=== PATIENT | male | born 1980 ===

== ENCOUNTER 2018-06-30 17:25 | Emergency (ER) | payer SELFPAY ==
[2018-06-30] MEDS ORDERED: KETOROLAC TROMETHAMINE 30 MG/ML SOL IM ONE (18:10)
[2018-06-30] MEDS ORDERED: SOLUMEDROL 125 MG/2 ML 125 MG/2 ML PDS IM ONE (18:10)
[2018-06-30] MEDS ORDERED: KETOROLAC TROMETHAMINE 30 MG/ML SOL ONE (18:12)
[2018-06-30] MEDS ORDERED: SOLUMEDROL 125 MG/2 ML 125 MG/2 ML PDS ONE (18:12)
[2018-06-30 19:29] VITALS: RESP 20
[2018-06-30 19:30] VITALS: BP 152/74; PULSE 88; O2SAT 92
[2018-06-30 19:31] VITALS: TEMP 97.2
== END 2018-06-30 19:08 | disposition home or self-care (01) | DRG 563 ==
LOC: ED 17:25
DX: S39.012A Strain of muscle, fascia and tendon of lower back, initial encounter (principal)
CPT/HCPCS: 96372; 99283; J1885; J2930

== ENCOUNTER 2018-09-11 04:08 | Emergency (ER) | payer OTHER ==
[2018-09-11 04:35] VITALS: BP 164/92; PULSE 68; RESP 20; TEMP 97.8; O2SAT 98
== END 2018-09-11 04:39 ==
LOC: ED 04:08
DX: F19.10 Other psychoactive substance abuse, uncomplicated (principal); Z72.89 Other problems related to lifestyle
CPT/HCPCS: 99282